=== PATIENT | male | born 1945 | race Caucasian/White ===

== ENCOUNTER → 2024-04-07 09:26 | Outpatient (REF) | payer OTHER, SELFPAY | LOC: DHSLP 09:26 | PROVIDERS: ATTENDING PHYSICIAN Internal Medicine Critical Care Medicine | DX: G47.33 Obstructive sleep apnea (adult) (pediatric) (principal) | CPT/HCPCS: 95800 ==

== ENCOUNTER 2024-07-03 06:18 | Day surgery (SDC) | payer OTHER, SELFPAY ==
[2024-07-03 09:03] LABS: Glucose - Point of Care 124 mg/dl (70-99)
== END 2024-07-03 11:11 | disposition home or self-care (01) ==
LOC: GI 06:18
PROVIDERS: ATTENDING PHYSICIAN Internal Medicine Gastroenterology
DX: D50.9 Iron deficiency anemia, unspecified (principal); K57.30 Diverticulosis of large intestine without perforation or abscess without bleeding; K64.8 Other hemorrhoids; K44.9 Diaphragmatic hernia without obstruction or gangrene; K20.90 Esophagitis, unspecified without bleeding; K29.70 Gastritis, unspecified, without bleeding; K31.7 Polyp of stomach and duodenum; D12.3 Benign neoplasm of transverse colon; D12.2 Benign neoplasm of ascending colon
CPT/HCPCS: 45385; 45380; 43239; 88305; 82962; 88342